=== PATIENT | female | born 1985 | race Caucasian/White ===

== ENCOUNTER → 2018-09-06 | Outpatient (CLI) | payer BC | END | disposition home or self-care (01) | LOC: LABWHC1 12:38 | PROVIDERS: ATTEND Obstetrics & Gynecology | DX: O20.0 Threatened abortion (principal); Z3A.00 Weeks of gestation of pregnancy not specified | CPT/HCPCS: 36415; 84702; 86850; 86900; 86901 ==

== ENCOUNTER → 2018-09-08 | Outpatient (CLI) | payer BC | END | disposition home or self-care (01) | LOC: LABWHC1 08:01 | PROVIDERS: ATTEND Obstetrics & Gynecology | DX: O20.0 Threatened abortion (principal); Z3A.00 Weeks of gestation of pregnancy not specified | CPT/HCPCS: 36415; 84702 ==

== ENCOUNTER → 2018-09-11 | Outpatient (CLI) | payer BC | END | disposition home or self-care (01) | LOC: LABWHC1 08:15 | PROVIDERS: ATTEND Obstetrics & Gynecology | DX: O20.0 Threatened abortion (principal); Z3A.00 Weeks of gestation of pregnancy not specified | CPT/HCPCS: 36415; 84702 ==

== ENCOUNTER → 2018-09-13 | Outpatient (CLI) | payer BC | LOC: LABWHC1 07:39 | PROVIDERS: ATTEND Obstetrics & Gynecology | DX: O20.0 Threatened abortion (principal) | CPT/HCPCS: 36415; 84702 ==

== ENCOUNTER → 2018-10-01 | Outpatient (CLI) | payer BC ==
[2018-10-01 11:30] LABS: HCT 36.9 % (34.0-46.0); HGB 12.1 gm/dL (11.4-16.0); MCH 29.3 pg (25.0-35.0); MCHC 32.9 g/dL (31.0-37.0); MCV 89.2 fL (80.0-100.0); Mean Platelet Volume 7.4; Platelet Count 303 k/uL (150-450); RBC 4.13 m/uL (3.80-5.40); WBC 5.8 k/uL (3.8-10.6)
== END | disposition home or self-care (01) ==
LOC: LABWHC1 10:50
PROVIDERS: ATTEND Obstetrics & Gynecology
DX: O20.0 Threatened abortion (principal)
CPT/HCPCS: 36415; 84702; 85027

== ENCOUNTER 2018-10-02 14:11 | Day surgery (SDC) | payer BC ==
[2018-10-02] MEDS ORDERED: LACTATED RINGERS 1,000 ML IV ONE ×2 (14:55→17:03)
[2018-10-02] MEDS ORDERED: ONDANSETRON 4 MG/2 ML VIAL IVP ONE (14:56)
[2018-10-02] MEDS ORDERED: SCOPOLAMINE 1.5MG/72HR PATCH TRANSDERM ONE (14:56)
[2018-10-02] MEDS ORDERED: DEXAMETHASONE SOD PHOS (MDV) 100 MG/10 ML VIAL IV ONE (14:56)
[2018-10-02] MEDS ORDERED: PROPOFOL 10 MG/ML 20 ML VIAL IV ONE (15:48)
[2018-10-02] MEDS ORDERED: fentaNYL (PF) 50 MCG/ML 2 ML AMP ONE (15:48)
[2018-10-02] MEDS ORDERED: MIDAZOLAM 2 MG/2 ML VIAL ONE (15:48)
[2018-10-02] MEDS ORDERED: KETOROLAC 30 MG/ML 1 ML VIAL ONE (15:48)
[2018-10-02] MEDS ORDERED: LIDOCAINE 1% INJ 10MG/ML (20 ML MDV) ONE (15:48)
--- NOTE | 2018-10-02 15:52 | P.HPOB ---
History of Present Illness H&P Date: 10/02/18 Chief Complaint: Incomplete This is a 33 year old 2 para 1 woman who is 8 weeks 5 days by dates that has ongoing vaginal bleeding. She had an ultrasound today showing an intrauterine demise with a measurement of 6 weeks 3 days. Her beta hCG has been rising abnormally going from 15,000-17,000 over the last week. She has been having intermittent light vaginal bleeding for several weeks which has become much heavier and the last 24-48 hours. She has minimal cramping. Review of Systems All systems: negative Constitutional: Denies chills, Denies fever Cardiovascular: Denies chest pain, Denies shortness of breath Respiratory: Denies cough Gastrointestinal: Denies abdominal pain, Denies nausea, Denies vomiting Genitourinary: Reports abnormal vaginal bleeding Menstruation: Reports as per HPI Integumentary: Denies rash Past Medical History Past Medical History: No Reported History History of Any Multi-Drug Resistant Organisms: None Reported Past Surgical History: No Surgical Hx Reported Additional Past Surgical History / Comment(s): [place] teeth extracted. Past Anesthesia/Blood Transfusion Reactions: No Reported Reaction Past Psychological History: No Psychological Hx Reported Smoking Status: Never smoker Past Alcohol Use History: None Reported Past Drug Use History: None Reported - Past Family History Father Family Medical History: No Reported History Additional Family Medical History / Comment(s): brother of SIDS Medications and Allergies Home Medications Medication Instructions Recorded Confirmed Type Pnv,Calcium 72/Iron/Folic Acid 1 tab PO DAILY 01/04/15 01/04/15 History [ Plus Tablet] Allergies Allergy/AdvReac Type Severity Reaction Status Date / Time No Known Allergies Allergy Verified 01/04/15 06:16 Exam Vital Signs Temp Pulse Resp BP Pulse Ox 10/02/18 14:58 98.9 F 65 16 112/68 100 This is a pleasant, comfortable appearing female in no evident distress. HEENT exam is unremarkable. Her breathing is unlabored and her lungs are clear. Her heart is a regular rate and rhythm. The abdomen is soft with mild suprapubic tenderness. No rebound no guarding and no flank pain. Pelvic examination is deferred. Neurologically she is grossly intact. Mood and affect appropriate. Assessment and Plan (1) Missed Current Visit: Yes Status: Acute Code(s): O02.1 - MISSED SNOMED Code(s): 04330925 Plan: 33-year-old 2 para 1 woman with incomplete at 8 weeks 5 days by date. demise confirmed by ultrasound. Her blood type is O+. She is scheduled to undergo suction dilation and curettage. This procedure has been reviewed with her in detail including risks of bleeding, transfusion, infection, uterine perforation, incomplete evacuation of products. The patient understands these risks and agrees to proceed.
[2018-10-02] MEDS ORDERED: LIDOCAINE 1%-EPI 1:100,000 20 ML VIAL SQ ONE (15:58)
[2018-10-02] MEDS ORDERED: LIDOCAINE 1%-EPI 1:100,000 20 ML VIAL SUBMUCOSAL ONE (16:05)
[2018-10-02] MEDS ORDERED: SILVER NITRATE APPLICATOR 1 EACH STICK..EA. TOPICAL ONE (16:16)
[2018-10-02 16:36] VITALS: TEMP 98.2
[2018-10-02] MEDS ORDERED: METHYLERGONOVINE 0.2 MG TAB PO ONE (16:40)
--- NOTE | 2018-10-02 16:40 | P.OP ---
Date of Procedure: 10/02/18 Preoperative Diagnosis: Incomplete Postoperative Diagnosis: Same Procedure(s) Performed: Suction dilation and curettage Anesthesia: [facility] [place] Surgeon: Brenna Hubbard Estimated Blood Loss (ml): 50 IV fluids (ml): 700 Urine output (ml): 100 Pathology: other (Products of conception) Condition: stable Disposition: PACU Operative Findings: 8 week size uterus on bimanual examination. Cervix soft with dark red active bleeding. Description of Procedure: After the patient and her family were met in the preoperative holding area and all questions were answered, she was taken to the operating room where anesthetic was administered without incident. Appropriate timeout procedure was undertaken. The patient was in positioned, prepped and draped in the dorsal lithotomy position. Bladder was drained for 100 mL of clear urine. Exam under anesthetic was undertaken and the above findings were noted. Speculum was placed in the vagina and the cervix was grasped anteriorly with a single-tooth tenaculum. The uterus was sounded to 10 cm. The cervix was then sequentially dilated to allow for passage of the 10-[place] curved suction curette. The suction curet was introduced and the uterus was circumferentially curettaged with appropriate products of conception obtained. The curet was then removed and a sharp banjo curette was introduced and the uterus was again circumferentially curettaged with minimal tissue obtained. Final pass with the suction curet was performed. There was some bright red vaginal bleeding noted after this from the cervical os. Speculum was removed and bimanual examination was performed. Uterus felt small and firm and approximately 6 weeks' size. Speculum was reintroduced and scant vaginal bleeding was noted. Silver nitrate was applied to the tenaculum sites for hemostasis. Previously a paracervical block with lidocaine plus epinephrine had been placed in the usual fashion for analgesia. All instruments were then removed from the vagina and the patient was awoken from anesthetic and transported recovery area in stable condition. All counts reported to as correct to me by the operating room staff.
[2018-10-02] MEDS ORDERED: HYDROmorphone 1 MG/ML 1 ML SYRINGE IVP ONE (16:45)
[2018-10-02 16:51] VITALS: RESP 18
[2018-10-02 17:27] VITALS: BP 100/64; PULSE 55
[2018-10-03] MEDS ORDERED: Pre Op ABX Message 1 EACH MISC MISCELLANE ONE (05:00)
== END 2018-10-02 17:38 | disposition home or self-care (01) ==
LOC: OR 14:11
PROVIDERS: ATTEND Obstetrics & Gynecology
DX: O02.1 Missed abortion (principal); Z3A.08 8 weeks gestation of pregnancy; Z84.82 Family history of sudden infant death syndrome
CPT/HCPCS: 59820; 86900; 86901; 88305; 86850; J2250; J2405; J2001; J3010; J1885; J1170; J1100; J2704

== ENCOUNTER → 2018-10-02 | Outpatient (CLI) | payer BC ==
[2018-10-02 10:46] LABS: Basophils % (A) 1 %; Eosinophils # (A) 0.1 k/uL (0-0.7); Eosinophils % (A) 2 %; HCT 36.9 % (34.0-46.0); HGB 12.2 gm/dL (11.4-16.0); Lymphocytes # (A) 1.4 k/uL (1.0-4.8); Lymphocytes % (A) 23 %; MCH 29.3 pg (25.0-35.0); MCV 88.6 fL (80.0-100.0); Monocytes # (A) 0.2 k/uL (0-1.0); Monocytes % (A) 4 %; Neutrophils % (A) 68 %; Platelet Count 322 k/uL (150-450); RBC 4.16 m/uL (3.80-5.40); RDW 12.1 % (11.5-15.5); WBC 5.9 k/uL (3.8-10.6)
== END ==
LOC: LABPAT 10:06
PROVIDERS: ATTEND Obstetrics & Gynecology
DX: Z01.812 Encounter for preprocedural laboratory examination (principal)
CPT/HCPCS: 36415; 85025

== ENCOUNTER → 2018-10-31 | Outpatient (CLI) | payer BC | END | disposition home or self-care (01) | LOC: LABWHC1 12:49 | PROVIDERS: ATTEND Obstetrics & Gynecology | DX: O02.1 Missed abortion (principal) | CPT/HCPCS: 36415; 84702 ==

== ENCOUNTER → 2019-01-30 | Outpatient (CLI) | payer BC | END | disposition home or self-care (01) | LOC: LABWHC1 16:10 | PROVIDERS: ATTEND Obstetrics & Gynecology | DX: O20.0 Threatened abortion (principal) | CPT/HCPCS: 36415; 84702 ==

== ENCOUNTER → 2019-02-01 | Outpatient (CLI) | payer BC | LOC: LABWHC1 15:17 | PROVIDERS: ATTEND Obstetrics & Gynecology | DX: O20.0 Threatened abortion (principal) | CPT/HCPCS: 36415; 84702 ==

== ENCOUNTER 2019-10-01 05:58 | Inpatient (IN) | payer BC ==
[2019-10-01] MEDS ORDERED: OXYTOCIN 10 UNIT/ML 1 ML VIAL IM PRN (06:03)
[2019-10-01] MEDS ORDERED: TERBUTALINE 1 MG/ML VIAL SQ PRN (06:03)
[2019-10-01] MEDS ORDERED: CARBOPROST TROMETHAMINE 250 MCG/ML 1 ML AMP IM PRN (06:03)
[2019-10-01] MEDS ORDERED: METHYLERGONOVINE 0.2 MG/ML 1 ML AMP IM PRN (06:03)
[2019-10-01] MEDS ORDERED: LIDOCAINE 0.5% (PF) 5 MG/ML (50 ML SDV) SQ PRN (06:03)
[2019-10-01 06:30] VITALS: RESP 16
[2019-10-01] MEDS: LACTATED RINGERS 1,000 ML IV SCH ×2 (06:31→10:11)
[2019-10-01] MEDS: OXYTOCIN 30 UNITS/500 ML NS 30 UNIT in SALINE 1 500ML.BAG IV SCH (06:44)
[2019-10-01 06:46] LABS: Basophils % (A) 0 %; Eosinophils # (A) 0.1 k/uL (0-0.7); Eosinophils % (A) 1 %; HCT 34.8 % (34.0-46.0); HGB 11.7 gm/dL (11.4-16.0); Lymphocytes # (A) 1.8 k/uL (1.0-4.8); Lymphocytes % (A) 19 %; MCH 29.6 pg (25.0-35.0); MCHC 33.6 g/dL (31.0-37.0); MCV 88.2 fL (80.0-100.0); Mean Platelet Volume 8.4; Monocytes # (A) 0.4 k/uL (0-1.0); Monocytes % (A) 4 %; Neutrophils % (A) 73 %; Platelet Count 330 k/uL (150-450); RBC 3.95 m/uL (3.80-5.40); RDW 14.7 % (11.5-15.5); WBC 9.6 k/uL (3.8-10.6)
[2019-10-01] MEDS ORDERED: ROPIVACAINE 5MG/ML 20ML VIAL ONE (10:20)
[2019-10-01] MEDS ORDERED: fentaNYL (PF) 50 MCG/ML 5 ML AMP ONE (10:20)
[2019-10-01] MEDS ORDERED: SODIUM CHLORIDE 0.9% 100 ML BAG ONE (10:20)
[2019-10-01] MEDS ORDERED: ROPIVACAINE 100 MG, fentaNYL (PF) 200 MCG in SODIUM CHLORIDE 0.9% 76 ML EPIDURAL ONE (12:57)
--- NOTE | 2019-10-01 13:59 | P.PROBDLV ---
Vaginal Delivery Note - . Vaginal Delivery Note: This is a 34-year-old 3 para 1011 at 39-0/7 weeks that presented to labor and delivery for elective induction of labor secondary to suspected LGA. Patient had been receiving routine care which has been essentially uncomplicated. Patient was admitted to labor and delivery and Pitocin induction of labor was begun per hospital protocol. Patient was noted have regular contractions therefore amniotomy was performed and clear fluid was obtained. Patient progressed through labor eventually becoming uncomfortable and requesting epidural placement. Epidural was placed without difficulty by the anesthesia department. Patient soon progressed to complete began pushing and had a normal spontaneous vaginal delivery of a viable male at 1333, weight of 9 pounds 0.3 ounces, grams 4090. Apgars of 9-9 at one and 5 minutes respectively. After a two-minute delayed the local cord was doubly clamped and cut and was handed off to the maternal abdomen. The placenta was then delivered spontaneously intact with three-vessel cord being noted after cord blood was obtained. On inspection the patient's vaginal vault a second-degree midline laceration was noted and this was repaired in the usual fashion with 3-0 Rapide after instillation of lidocaine. A rectal exam was performed and found to be normal in nature. Estimated blood loss, 300 mL. Patient and tolerated delivery well and are resting comfortably.
--- NOTE | 2019-10-01 13:59 | P.HPOB ---
History of Present Illness H&P Date: 10/01/19 Chief Complaint: IUP @ 39 0/7 weeks, suspected LGA This is a 34yo at 39 weeks that presents for IOL secondary to suspected LGA. Patient has been receiving routine care with Dr. Hubbard which has been essentially uncomplicated. Patient had a ultrasound done at 36 weeks' revealing suspected LGA, estimated weight greater than the 99th percentile. Patient notes good movement, denies contractions or vaginal bleeding this morning. On bloodwork patient a blood type is O+, rubella status immune, hepatitis B surface antigen negative, HIV negative, RPR nonreactive, GBS negative. Review of Systems Constitutional: Denies chills, Denies fatigue, Denies fever Ears, nose, mouth and throat: Denies headache Cardiovascular: Reports leg edema Respiratory: Denies dyspnea Gastrointestinal: Denies constipation, Denies diarrhea, Denies nausea, Denies vomiting Genitourinary: Reports Past Medical History Past Medical History: No Reported History History of Any Multi-Drug Resistant Organisms: None Reported Past Surgical History: No Surgical Hx Reported Additional Past Surgical History / Comment(s): [place] teeth extracted. D&C Past Anesthesia/Blood Transfusion Reactions: No Reported Reaction Past Psychological History: No Psychological Hx Reported Smoking Status: Never smoker Past Alcohol Use History: None Reported Past Drug Use History: None Reported - Past Family History Father Family Medical History: No Reported History Additional Family Medical History / Comment(s): brother of SIDS Medications and Allergies Home Medications Medication Instructions Recorded Confirmed Type Pnv,Calcium 72/Iron/Folic Acid 1 tab PO DAILY 01/04/15 10/01/19 History [ Plus Tablet] Allergies Allergy/AdvReac Type Severity Reaction Status Date / Time No Known Allergies Allergy Verified 10/01/19 06:02 Exam Osteopathic Statement: *. No significant issues noted on an osteopathic structural exam other than those noted in the History and Physical/Consult. Vital Signs Temp Pulse Resp BP Pulse Ox 10/01/19 06:02 97.0 F L 83 16 106/60 99 Intake and Output 09/30/19 10/01/19 10/01/19 22:59 06:59 14:59 Other: Weight 77.564 kg Physical exam is performed and state in general this a well-nourished well- developed female in no acute distress, breathing is noted to be nonlabored, heart has regular rate and rhythm, abdomen is gravid and appropriate for gestational age, on cervical exam she is 4/70/-2, amniotomy is performed and clear fluid is obtained. heart tones are be category 1 and she is phu regularly. Results Result Diagrams: 10/01/19 06:17 Assessment and Plan (1) LGA (large for gestational age) fetus Current Visit: Yes Status: Acute Code(s): VGG6051 - SNOMED Code(s): 398853214 (2) 39 weeks gestation of Current Visit: No Status: Acute Code(s): Z3A.39 - 39 WEEKS GESTATION OF SNOMED Code(s): 28229925 Plan: Patient is admitted to labor and delivery for Pitocin induction of labor per hospital protocol. Patient does desire epidural placement for analgesia during labor. Spontaneous vaginal delivery.
[2019-10-01] MEDS ORDERED: SIMETHICONE 80 MG CHEWABLE PO PRN (14:01)
[2019-10-01] MEDS ORDERED: diphenhydrAMINE 25 MG CAP PO PRN (14:01)
[2019-10-01] MEDS ORDERED: OXYTOCIN 20 UNITS/1000 ML NS 1,000 ML IV SCH (14:01)
[2019-10-01] MEDS ORDERED: HYDROCORTISONE 2.5% RECTAL CREAM 30 GM TUBE RECTAL PRN (14:01)
[2019-10-01] MEDS ORDERED: diphenhydrAMINE 50 MG CAP PO PRN (14:01)
[2019-10-01] MEDS ORDERED: HYDROcodone/APAP 5-325MG 1 EACH TAB PO PRN (14:01)
[2019-10-01] MEDS ORDERED: LANOLIN CREAM 5 GM TUBE TOPICAL PRN (14:01)
[2019-10-01] MEDS ORDERED: WITCH HAZEL 1 EACH MED..PAD TOPICAL PRN (14:01)
[2019-10-01] MEDS ORDERED: BENZOCAINE/MENTHOL SPRAY 1 GM/SPRAY AEROSOL TOPICAL PRN (14:01)
[2019-10-01] MEDS ORDERED: diphenhydrAMINE 50 MG/ML 1 ML VIAL IVP PRN ×2 (14:01)
[2019-10-01] MEDS ORDERED: ZOLPIDEM 5 MG TAB PO PRN (14:01)
[2019-10-01] MEDS: IBUPROFEN 600 MG TAB PO PRN ×2 (14:09→20:46)
[2019-10-01] MEDS: SENNOSIDES-DOCUSATE SODIUM 1 EACH TAB PO SCH (20:46)
[2019-10-02] MEDS: ACETAMINOPHEN TAB 325 MG TAB PO PRN ×2 (01:25→07:57)
[2019-10-02] MEDS: IBUPROFEN 600 MG TAB PO PRN ×2 (05:35→14:07)
[2019-10-02 06:00] LABS: Basophils % (A) 0 %; Eosinophils # (A) 0.1 k/uL (0-0.7); Eosinophils % (A) 1 %; HCT 30.8 % (34.0-46.0); HGB 10.3 gm/dL (11.4-16.0); Lymphocytes # (A) 1.8 k/uL (1.0-4.8); Lymphocytes % (A) 15 %; MCH 29.6 pg (25.0-35.0); MCHC 33.5 g/dL (31.0-37.0); MCV 88.4 fL (80.0-100.0); Monocytes # (A) 0.5 k/uL (0-1.0); Monocytes % (A) 4 %; Neutrophils % (A) 78 %; Platelet Count 295 k/uL (150-450); RBC 3.48 m/uL (3.80-5.40); RDW 14.6 % (11.5-15.5); WBC 11.6 k/uL (3.8-10.6)
[2019-10-02] MEDS: SENNOSIDES-DOCUSATE SODIUM 1 EACH TAB PO SCH (07:57)
--- NOTE | 2019-10-02 08:36 | P.DS ---
Providers Date of admission: 10/01/19 05:58 Expected date of discharge: 10/02/19 Attending physician: Brenna Hubbard Primary care physician: Stated None - Discharge Diagnosis(es) (1) LGA (large for gestational age) fetus Current Visit: Yes Status: Acute (2) 39 weeks gestation of Current Visit: No Status: Acute (3) Normal vaginal delivery Current Visit: No Status: Acute (4) Perineal laceration during delivery, delivered Current Visit: No Status: Acute Hospital Course: This is a pleasant 34-year-old 3 para 1011 at 39-0/7 weeks that presented to labor and delivery yesterday for elective induction of labor secondary to suspected LGA. Patient had been receiving routine care which has been essentially uncomplicated. Patient was admitted to labor and delivery and Pitocin augmentation of labor was begun per hospital protocol. Patient did undergo amniotomy once regular contractions were noted and clear fluid was obtained. Patient progressed through labor eventually becoming uncomfortable and requesting epidural placement. Epidural was placed without difficulty by the anesthesia department. Patient made progress towards complete began pushing and had a normal spontaneous vaginal delivery of a viable male infant at 1333, weight of 9 pounds 0.3 ounces, grams 4090. Infant did have Apgars of 9 and 9 at one and 5 minutes respectively. Patient did sustain a second-degree midline laceration during delivery which was repaired in the usual fashion with 3-0 repeat. Patient has been doing well since delivery. She is ambulating and voiding without difficulty. She is tolerating a regular diet without nausea or vomiting. She is using ibuprofen and Tylenol for discomfort. Patient does desire discharge home at 24 hours. Patient Condition at Discharge: Good Plan - Discharge Summary New Discharge Prescriptions: No Action Pnv,Calcium 72/Iron/Folic Acid [ Plus Tablet] 1 tab PO DAILY Discharge Medication List Pnv,Calcium 72/Iron/Folic Acid [ Plus Tablet] 1 tab PO DAILY 01/04/15 [History] Follow up Appointment(s)/Referral(s): Brenna Hubbard MD [STAFF PHYSICIAN] - 6 Weeks Patient Instructions/Handouts: Vaginal Delivery (DC), Vaginal Delivery (GEN) Discharge Disposition: HOME SELF-CARE
[2019-10-02] MEDS ORDERED: PRENATAL VIT-IRON-FOLIC ACID 1 EACH CAP PO SCH (09:00)
[2019-10-02 10:24] VITALS: BP 101/66; PULSE 81; TEMP 97.7
[2019-10-02] MEDS: LACTATED RINGERS 1,000 ML IV SCH (10:25)
[2019-10-02] MEDS: OXYTOCIN 30 UNITS/500 ML NS 30 UNIT in SALINE 1 500ML.BAG IV SCH (10:26)
== END 2019-10-02 15:10 | disposition home or self-care (01) | DRG 807 ==
LOC: 4FBP 05:58
PROVIDERS: ADMIT Obstetrics & Gynecology; ATTEND Obstetrics & Gynecology
PROC: 10E0XZZ Delivery of Products of Conception, External Approach (ICD-10-PCS; principal; 2019-10-01)
PROC: 3E0R3BZ Introduction of Anesthetic Agent into Spinal Canal, Percutaneous Approach (ICD-10-PCS; principal; 2019-10-01)
PROC: 0KQM0ZZ Repair Perineum Muscle, Open Approach (ICD-10-PCS; principal; 2019-10-01)
PROC: 00HU33Z Insertion of Infusion Device into Spinal Canal, Percutaneous Approach (ICD-10-PCS; principal; 2019-10-01)
PROC: 10907ZC Drainage of Amniotic Fluid, Therapeutic from Products of Conception, Via Natural or Artificial Opening (ICD-10-PCS; principal; 2019-10-01)
PROC: 3E033VJ Introduction of Other Hormone into Peripheral Vein, Percutaneous Approach (ICD-10-PCS; principal; 2019-10-01)
DX: O36.63X0 Maternal care for excessive fetal growth, third trimester, not applicable or unspecified (principal); Z37.0 Single live birth; O99.62 Diseases of the digestive system complicating childbirth; O70.1 Second degree perineal laceration during delivery; K21.9 Gastro-esophageal reflux disease without esophagitis; Z3A.39 39 weeks gestation of pregnancy; Z82.0 Family history of epilepsy and other diseases of the nervous system
CPT/HCPCS: 85025; 86850; 86900; 86901

== ENCOUNTER → 2024-04-04 | Outpatient (CLI) | payer BC ==
--- NOTE | 2024-04-04 12:41 | XR ---
Chest, 2 view. HISTORY: Cough. COMPARISON: None TECHNIQUE: PA and lateral views the chest are obtained. FINDINGS: The lungs are clear and there is no consolidative or interstitial opacity. There is no pleural effusion or pneumothorax. The heart, pulmonary vasculature, mediastinum and benjamin appear normal. The osseous structures are intact. IMPRESSION: No significant abnormality seen. No acute cardiopulmonary disease. [facility], Workstation: [facility], 04/04/2024 12:39 PM
== END | disposition home or self-care (01) ==
LOC: RADXRMAIN 11:37
PROVIDERS: ATTEND Emergency Medicine
DX: R05.9 Cough, unspecified (principal)
CPT/HCPCS: 71046